=== PATIENT | female | born 1985 | race Caucasian/White ===

== ENCOUNTER 2023-07-21 23:05 | Emergency (ER) | payer OTHER, SELFPAY ==
[2023-07-21 23:25] VITALS: BP 154/78; PULSE 58; RESP 18; TEMP 36.9; O2SAT 99; BMI 43.9
--- NOTE | 2023-07-21 23:59 | ECG_ITS ---
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
--- NOTE | 2023-07-21 23:59 | CT_ITS ---
The [address] [address] Patient Name: JUSTUS FARNSWORTH MRN: [id number] date: 1985 Sex: F Assigned Patient Location: ER Current Patient Location: Accession/Order Number: [id number] Exam Date: 07/21/2023 23:59 Report Date: 07/22/2023 01:10 At the request of: TRISHA RODRIGUEZ Procedure: CT abdomen pelvis wo con EXAM: CT abdomen pelvis wo con CLINICAL INDICATION: abdominal pain COMPARISON: No comparison studies are available at the time of this dictation. TECHNIQUE: Axial CT images were obtained through the abdomen and pelvis. No intravenous contrast was administered. The absence of intravenous contrast does limit evaluation particularly of the parenchymal organs and for adenopathy. Coronal and sagittal reformats were obtained. Dose reduction techniques were achieved by using automated exposure control and/or adjustment of mA and/or kV according to patient size and/or use of iterative reconstruction technique. FINDINGS: Heart: Heart size is within normal limits Lungs: Image lung bases are clear. Liver: Fatty infiltration of the liver with hepatomegaly measuring 22 cm in craniocaudal dimensions. Gallbladder and biliary system: Status post cholecystectomy.. Biliary ducts no pathologic dilation. Spleen: Spleen is not enlarged Pancreas: Unremarkable Adrenal Glands: Adrenals no masses. Kidneys and ureters: No hydronephrosis or hydroureter. No obstructing stones. 2.6 mm nonobstructing stone visualized within the midpole of the left kidney. Vascular: No evidence of abdominal aortic aneurysm. Lymph nodes: No pathologically enlarged nodes are seen. Gastrointestinal Tract: Stomach: Unremarkable Bowel: No pathologic dilation or mucosal thickening. Appendix: No findings to suggest acute appendicitis. Peritoneal Cavity: No free air. No significant fluid collections. Soft tissues abdominal wall: No abdominal wall hernias containing bowel. Small fat-containing anterior abdominal hernia. Reproductive: Uterus surgically absent. Bladder: Bladder without apparent masses. The bladder is underdistended which does limit evaluation of the wall. Bony structures: No fractures are seen. CT/CT abdomen pelvis wo con IMPRESSION: 1. No acute process visualized within the abdomen/pelvis. 2. 2.6 mm nonobstructing stone visualized within the midpole of the left kidney. 3. Hepatomegaly with fatty infiltration of the liver. 4. Status post cholecystectomy and hysterectomy. 5. Normal appendix. Electronically authenticated by: KALEN LEON Date: 07/22/2023 01:10
[2023-07-22 00:17] LABS: Basophils Absolute Auto 0.1 10^3/uL (0.0-0.1); Basophils Percent Auto 0.6 % (0.2-2.0); Eosinophils Absolute Auto 0.3 10^3/uL (0.0-0.7); Hemoglobin 11.5 g/dL (12.0-16.0); Immature Granulocytes Abs Auto 0.04 10^3/uL (0.00-0.03); Immature Granulocytes Pct Auto 0.5 % (0.0-0.5); Lymphocytes Absolute Auto 2.4 10^3/uL (1.2-3.8); Lymphocytes Percent Auto 30.7 % (20.5-60.0); Mean Corpuscular HGB Conc 32.9 g/dL (29.9-35.2); Mean Corpuscular Hemoglobin 29.9 pg (26.7-34.0); Mean Corpuscular Volume 90.9 fL (81.0-99.0); Mean Platelet Volume 8.9 fL (9.5-13.5); Monocytes Absolute Auto 0.5 10^3/uL (0.3-0.8); Monocytes Percent Auto 6.5 % (1.7-12.0); Neutrophils Absolute Auto 4.5 10^3/uL (1.4-6.5); Neutrophils Percent Auto 57.7 % (43.0-75.0); Platelet Count 238 10^3/uL (150-450); Red Blood Count 3.85 10^6/uL (4.20-5.40); Red Cell Distribution Width 13.1 % (11.0-15.0); White Blood Count 7.8 10^3/uL (4.0-11.0)
[2023-07-22 00:19] LABS: Bilirubin Urine NEGATIVE (NEGATIVE); Blood Urine NEGATIVE (NEGATIVE); Clarity Urine CLEAR (CLEAR); Color Urine YELLOW (YELLOW); Glucose Urine UA NEGATIVE (NEGATIVE); Ketones Urine TRACE mg/dL (NEGATIVE); Leukocyte Esterase Urine NEGATIVE (NEGATIVE); Nitrite Urine NEGATIVE (NEGATIVE); Protein Urine NEGATIVE (NEG/TRACE); Specific Gravity Urine 1.025 (1.005-1.025)
[2023-07-22] MEDS: KETOROLAC TROMETHAMINE 30 MG/ML VIAL 15 MG IVP (00:30)
[2023-07-22 00:33] LABS: HCG Qualitative NEGATIVE (NEGATIVE)
[2023-07-22 00:39] LABS: Alanine Aminotransferase 26 U/L (14-59); Albumin Level 3.5 g/dL (3.4-5.0); Alkaline Phosphatase 58 U/L (46-116); Anion Gap 5.8; Aspartate Amino Transferase 11 U/L (15-37); BUN Creatinine Ratio 12.4; Bilirubin Total 0.9 mg/dL (0.2-1.0); Calcium 8.6 mg/dL (8.5-10.1); Carbon Dioxide 31.5 mmol/L (21.0-32.0); Chloride 104 mmol/L (98-107); Estimated GFR (African America >60 (>=60); Estimated GFR (Non-African Ame >60 (>=60); Globulin 3.5 g/dL; Glucose 96 mg/dL (74-106); Potassium 3.3 mmol/L (3.5-5.1); Sodium 138 mmol/L (136-145); Troponin I High Sensitivity <4.0 pg/mL (4.0-51.3)
[2023-07-22] MEDS: CYCLOBENZAPRINE HCL 10 MG TABLET PO (01:34)
--- NOTE | 2023-07-22 01:39 | ED_ITS ---
HPI - General Adult General Chief complaint: Back Pain/Injury Stated complaint: RIB BACK PAIN Time Seen by Provider: 07/21/23 23:54 Source: patient Mode of arrival: walk-in History of Present Illness HPI narrative: 38-year-old female to the emergency department with chief complaint of back pain/abdominal pain. Patient reports that for a little over a week she has had pain that seems to radiate from her lower thoracic spine into her abdomen. She denies any injury or falls. She denies any nausea, vomiting, diarrhea. She denies any vaginal bleeding or discharge. . She is never had pain like this before. She denies any chest pain or shortness of breath. Pain is constant. There are no aggravating or relieving factors. She has not tried any therapies at home. Related Data Home Medications Medication Instructions Recorded Confirmed alprazolam 0.5 mg tablet mg 07/21/23 escitalopram oxalate 10 mg tablet mg 07/21/23 ondansetron 4 mg disintegrating mg 07/21/23 tablet Previous Rx's Medication Instructions Recorded cyclobenzaprine 10 mg tablet 10 mg PO BID PRN muscle spasm #10 07/22/23 tabs naproxen 500 mg tablet 500 mg PO BID PRN pain #14 tabs 07/22/23 Allergies Allergy/AdvReac Type Severity Reaction Status Date / Time acetaminophen [From Vicodin] Allergy Verified 07/21/23 23:27 hydrocodone [From Vicodin] Allergy Verified 07/21/23 23:27 Penicillins Allergy Verified 07/21/23 23:27 Review of Systems ROS Status of ROS 10 or more systems reviewed and unremarkable except as noted in history and below [facility] Social History Smoking status: Never smoker Exam Narrative Exam Narrative: VITALS: I have reviewed the triage vital signs. GENERAL: Well developed, well appearing adult in no acute distress. NEURO: Alert and oriented. Moves all extremities. Face is symmetric and expressive. EYES: PERRL. No scleral icterus or conjunctival injection. No discharge. HENT: Normocephalic, atraumatic. Hearing is grossly intact. Nares grossly patent and without discharge. Mucous membranes moist. NECK: No JVD. Patient moves neck without restriction. CARDIO: Rhythm regular. Normal rate. No murmur, rub, or gallop. Pulses equal bilaterally in the upper and lower extremity. No lower extremity edema. PULM: Lungs clear to auscultation in all bowman. No wheezes, rales, or rhonchi. No conversational dyspnea. No splinting, stridor, or accessory muscle use. GI/: Abdomen is soft. Mild upper left and right quadrant tenderness. Normoactive bowel sounds. EXTREMITIES: Symmetric muscle bulk. No joint swelling. No clubbing, cyanosis, or deformity. No midline thoracic or lumbar tenderness. SKIN: Warm and dry. Normal turgor. No rash or lesions appreciated. PSYCH: Mood, affect, and interaction is appropriate to the setting. Constitutional Vital Signs, click to edit/add: Last Vital Signs Temp 98.4 F 07/21/23 23:25 Pulse 58 L 07/21/23 23:25 Resp 18 07/21/23 23:25 BP 154/78 H 07/21/23 23:25 Pulse Ox 99 07/21/23 23:25 O2 Del Method Room Air 07/21/23 23:25 Course Vital Signs Vital signs: Vital Signs Temperature 98.4 F 07/21/23 23:25 Pulse Rate 58 L 07/21/23 23:25 Respiratory Rate 18 07/21/23 23:25 Blood Pressure 154/78 H 07/21/23 23:25 Pulse Oximetry 99 07/21/23 23:25 Oxygen Delivery Method Room Air 07/21/23 23:25 Temperature 98.4 F 07/21/23 23:25 Pulse Rate 58 L 07/21/23 23:25 Respiratory Rate 18 07/21/23 23:25 Blood Pressure 154/78 H 07/21/23 23:25 Pulse Oximetry 99 07/21/23 23:25 Oxygen Delivery Method Room Air 07/21/23 23:25 Medical Decision Making [facility] Narrative Medical decision making narrative: Well-appearing 38-year-old female with emergency department she went to bilateral back pain radiating into her upper abdomen. Vital stable, patient is afebrile. Tenderness were CT scan basic labs. Patient agrees the plan. Toradol for discomfort. Labwork reviewed and noted. No significant maladies. Troponin negative. Urinalysis without evidence of infection. Her CT scan has no acute findings. Pain responded modestly to the Toradol. We'll also add Flexeril. Suspect musculoskeletal etiology. She will take Flexeril and naproxen at home for symptoms. She'll follow-up with her PCP. Return portions were discussed. All questions were answered. The patient was discharged home. Medical Records Medical records reviewed: Yes I reviewed the patient's medical records Lab Data Lab results reviewed: Yes I reviewed the patient's lab results Labs: Lab Results 07/21/23 07/22/23 Range/Units 00:07 00:07 WBC 7.8 (4.0-11.0) 10^3/uL RBC 3.85 L (4.20-5.40) 10^6/uL Hgb 11.5 L (12.0-16.0) g/dL Hct 35.0 L (36.0-48.0) % MCV 90.9 (81.0-99.0) fL MCH 29.9 (26.7-34.0) pg MCHC 32.9 (29.9-35.2) g/dL RDW 13.1 (11.0-15.0) % Plt Count 238 (150-450) 10^3/uL MPV 8.9 L (9.5-13.5) fL Neut % (Auto) 57.7 (43.0-75.0) % Lymph % (Auto) 30.7 (20.5-60.0) % [place] % (Auto) 6.5 (1.7-12.0) % Eos % (Auto) 4.0 (0.9-7.0) % Baso % (Auto) 0.6 (0.2-2.0) % Neut # (Auto) 4.5 (1.4-6.5) 10^3/uL Lymph # (Auto) 2.4 (1.2-3.8) 10^3/uL [place] # (Auto) 0.5 (0.3-0.8) 10^3/uL Eos # (Auto) 0.3 (0.0-0.7) 10^3/uL Baso # (Auto) 0.1 (0.0-0.1) 10^3/uL Abs Immat Gran (auto) 0.04 H (0.00-0.03) 10^3/uL Imm/Tot Granulo (auto) 0.5 (0.0-0.5) % Sodium 138 (136-145) mmol/L Potassium 3.3 L (3.5-5.1) mmol/L Chloride 104 (98-107) mmol/L Carbon Dioxide 31.5 (21.0-32.0) mmol/L Anion Gap 5.8 BUN 12.0 (7.0-18.0) mg/dL Creatinine 0.97 (0.55-1.02) mg/dL Est GFR ( Amer) >60 (>=60) Est GFR (Non-Af Amer) >60 (>=60) BUN/Creatinine Ratio 12.4 Glucose 96 (74-106) mg/dL Calcium 8.6 (8.5-10.1) mg/dL Total Bilirubin 0.9 (0.2-1.0) mg/dL AST 11 L (15-37) U/L ALT 26 (14-59) U/L Alkaline Phosphatase 58 (46-116) U/L Troponin I High Sens <4.0 L (4.0-51.3) pg/mL Total Protein 7.0 (6.4-8.2) g/dL Albumin 3.5 (3.4-5.0) g/dL Globulin 3.5 g/dL Albumin/Globulin Ratio 1.0 Serum HCG, Qual Negative (NEGATIVE) Urine Color Yellow (YELLOW) Urine Clarity Clear (CLEAR) Urine pH 6.0 (5.0-9.0) Ur Specific [place] 1.025 (1.005-1.025) Urine Protein Negative (NEG/TRACE) mg/dL Urine Glucose (UA) Negative (NEGATIVE) mg/dL Urine Ketones Trace A (NEGATIVE) mg/dL Urine Occult Blood Negative (NEGATIVE) Urine Nitrite Negative (NEGATIVE) Urine Bilirubin Negative (NEGATIVE) Urine Urobilinogen 1.0 (0.2-1.0) EU/dL Ur Leukocyte Esterase Negative (NEGATIVE) Imaging Data CT scan - abdomen: Attestation: I have reviewed the pertinent imaging results. ECG Data Attestation: I personally reviewed and interpreted this ECG as follows: (Normal sinus rhythm at a rate of fifty-five. First-degree AV block. No STEMI. No acute ischemic changes. QTc 444) Discharge Plan Discharge Chief Complaint: Back Pain/Injury Clinical Impression: Back pain, Abdominal pain Patient Disposition: Home, Self-Care Time of Disposition Decision: 01:24 Condition: Good Mode of Transportation: Private Vehicle Prescriptions / Home Meds: New cyclobenzaprine 10 mg tablet 10 mg PO BID PRN (Reason: muscle spasm) Qty: 10 0RF naproxen 500 mg tablet 500 mg PO BID PRN (Reason: pain) Qty: 14 0RF No Action ondansetron 4 mg tablet,disintegrating escitalopram oxalate 10 mg tablet alprazolam 0.5 mg tablet Print Language: Maltese Instructions: Abdominal Pain (ED), Back Pain (ED) Stand Alone Forms: Portal Instructions Referrals: Physician,Non-Staff, MD [Primary Care Provider] - 1 week (Follow-up with your doctor in one week. Take medications as prescribed. Return to the Emergency De partment with worsening symptoms.)
== END 2023-07-22 01:41 | disposition home or self-care (01) ==
PROVIDERS: Emergency Provider Student in an Organized Health Care Education/Training Program
DX: M54.9 Dorsalgia, unspecified (principal); R10.9 Unspecified abdominal pain; Z79.899 Other long term (current) drug therapy
CPT/HCPCS: 36415; 74176; 80053; 81003; 84484; 84703; 85025; 93005; 96374; 99285